=== PATIENT | male | born 1950 ===

== ENCOUNTER → 2020-07-16 | Outpatient (CLI) | payer MEDICARE | END | disposition home or self-care (01) | LOC: LABWHC1 10:55 | PROVIDERS: ATTEND Radiology Radiation Oncology | DX: C61 Malignant neoplasm of prostate (principal) | CPT/HCPCS: 36415; 84153 ==

== ENCOUNTER → 2020-09-04 | Outpatient (CLI) | payer MEDICARE ==
[2020-09-04 11:53] LABS: Basophils % (A) 1 %; Eosinophils % (A) 1 %; HCT 44.4 % (39.0-53.0); HGB 14.1 gm/dL (13.0-17.5); Lymphocytes # (A) 1.5 k/uL (1.0-4.8); Lymphocytes % (A) 29 %; MCH 31.8 pg (25.0-35.0); MCHC 31.8 g/dL (31.0-37.0); Mean Platelet Volume 8.5; Monocytes # (A) 0.4 k/uL (0-1.0); Monocytes % (A) 8 %; Neutrophils # (A) 3.1 k/uL (1.3-7.7); Neutrophils % (A) 60 %; Platelet Count 219 k/uL (150-450); RBC 4.44 m/uL (4.30-5.90); RDW 12.8 % (11.5-15.5); WBC 5.1 k/uL (3.8-10.6)
[2020-09-04 12:07] LABS: African American GFR (CKD) >90 (>60 ml/min/1.73 sqM); Anion Gap 5 mmol/L; Blood Urea Nitrogen 18 mg/dL (9-20); Calcium 9.4 mg/dL (8.4-10.2); Carbon Dioxide 29 mmol/L (22-30); Chloride 102 mmol/L (98-107); Glucose 116 mg/dL (74-99); Non-African American GFR(CKD) 86 (>60 ml/min/1.73 sqM); Potassium 4.5 mmol/L (3.5-5.1); Sodium 136 mmol/L (137-145)
== END | disposition home or self-care (01) ==
LOC: LABPAT 11:18
PROVIDERS: ATTEND Urology
DX: Z01.818 Encounter for other preprocedural examination (principal); C61 Malignant neoplasm of prostate; R53.83 Other fatigue
CPT/HCPCS: 80048; 85025

== ENCOUNTER 2020-09-11 09:16 | Day surgery (SDC) | payer MEDICARE ==
[2020-09-03 11:23] VITALS: BMI 25.5
--- NOTE | 2020-09-08 06:35 | P.GSHP ---
History of Present Illness H&P Date: 09/08/20 Chief Complaint: Prostate cancer The patient is a 70-year-old male whose father had prostate cancer. The patient was found to have an elevated PSA level of 10.8 in January 2020. NATTY revealed the prostate to be moderately enlarged but smooth. He is relatively free of voiding symptoms. Prostate ultrasound revealed a prostate volume of 32 mL. 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 His Prolaris score was 3.4. A repeat PSA level in June 2020 was 15.2. Alternative treatment options have been reviewed in detail with the patient, and he has elected to undergo a right nerve sparing robotic-assisted laparoscopic prostatectomy with bilateral pelvic lymphadenectomy. - Genitourinary (Male) Genitourinary: Reports as per HPI Past Medical History Past Medical History: Cancer, Hypertension, Prostate Disorder Additional Past Medical History / Comment(s): occ. constipation, prostate cancer, hx skin cancer History of Any Multi-Drug Resistant Organisms: None Reported Past Surgical History: Tonsillectomy Additional Past Surgical History / Comment(s): lipoma removed from back, skin cancer removed from chest Additional Past Anesthesia/Blood Transfusion Reaction / Comment(s): never had a transfusion Smoking Status: Never smoker - Past Family History Father Family Medical History: Cancer Additional Family Medical History / Comment(s): prostate Medications and Allergies Home Medications Medication Instructions Recorded Confirmed Type Aspirin [Adult Low Dose Aspirin EC] 81 mg PO DAILY 09/03/20 09/03/20 History Fish Oil(Dose Unknown) 1 tab PO DAILY 09/03/20 09/03/20 History Vitamin B Complex 1 each PO DAILY 09/03/20 09/03/20 History Zinc(Dose Unknown) 1 tab PO DAILY 09/03/20 09/03/20 History lisinopriL 20 mg PO HS 09/03/20 09/03/20 History Allergies Allergy/AdvReac Type Severity Reaction Status Date / Time No Known Allergies Allergy Verified 09/03/20 11:13 Surgical - Exam - General well developed, well nourished, no distress - Respiratory normal respiratory effort, clear to auscultation - Cardiovascular Rhythm: regular Abnormal Heart Sounds: no systolic murmur, no diastolic murmur, no rub, no S3 Gallop, no S4 Gallop, no click, no other - Abdomen Abdomen: soft, non tender, no guarding, no rigid, no rebound Hernia: no none, no inguinal, no epigastric, no incisional, no reducible, no femoral, no umbilical, no scrotal, no incarcerated - Genitourinary normal penis with no external lesions, testicles non-tender - Rectum Rectum: normal sphincter tone, no masses, other (Small left apical prostate nodule) - Psychiatric oriented to time, oriented to person, oriented to place, speech is normal, memory intact Assessment and Plan (1) Malignant neoplasm of prostate Status: Acute Code(s): C61 - MALIGNANT NEOPLASM OF PROSTATE SNOMED Code(s): 639495099 Plan: Right nerve sparing robotic-assisted laparoscopic prostatectomy (RALP) with bilateral pelvic lymphadenectomy. The procedure has been reviewed in detail with the patient. The anticipated perioperative course was reviewed. Also discussed were potential risks, which include anesthesia, bleeding, infection, bowel injury, neurovascular injury, urinary leak, lymphocele, and vesical neck contracture. The possible need to convert to an open procedure has been discussed. The patient is aware of the likelihood of erectile dysfunction despite preservation of the right neurovascular bundle. He is also aware of the risk of urinary incontinence which may fail to resolve. Lastly, the possible need for adjuvant therapy has been discussed.
[~2020-09-11 09:16] MED LIST: DEXAMETHASONE SOD PHOSPHATE 4 MG/ML 1 ML VIAL IV ONE; HEPARIN SODIUM,PORCINE 5,000 UNIT/ML 1 ML VIAL SQ PRN; LIDOCAINE 1% (10MG/ML) FOR IV START INTRADERMA PRN; MIDAZOLAM 2 MG/2 ML VIAL IV PRN; ONDANSETRON 4 MG/2 ML VIAL IVP ONE
[2020-09-11] MEDS: LACTATED RINGERS 1,000 ML IV SCH (10:51)
[2020-09-11] MEDS ORDERED: HYDROmorphone (PF) 1 MG/ML ONE (12:36)
[2020-09-11] MEDS ORDERED: WATER FOR INJECTION, STERILE 10 ML VIAL IV ONE (12:36)
[2020-09-11] MEDS ORDERED: ePHEDrine SULFATE/0.9% NACL/PF 50 MG/5 ML SYRINGE IV ONE (12:36)
[2020-09-11] MEDS ORDERED: MIDAZOLAM 2 MG/2 ML VIAL ONE (12:36)
[2020-09-11] MEDS ORDERED: ROCURONIUM 10 MG/ML (10 ML VIAL) IV ONE (12:36)
[2020-09-11] MEDS ORDERED: fentaNYL (PF) 50 MCG/ML 2 ML AMP ONE (12:36)
[2020-09-11] MEDS ORDERED: GLYCOPYRROLATE 0.2 MG/ML 2 ML VIAL ONE (12:36)
[2020-09-11] MEDS ORDERED: PROPOFOL 10 MG/ML 20 ML VIAL IV ONE (12:36)
[2020-09-11] MEDS ORDERED: LIDOCAINE 1% INJ 10MG/ML (20 ML MDV) ONE (12:36)
[2020-09-11] MEDS ORDERED: NEOSTIGMINE 1 MG/ML 10 ML VIAL ONE (12:36)
[2020-09-11] MEDS ORDERED: BUPIVACAINE (PF) 0.25% 30 ML VIAL SQ ONE (13:09)
--- NOTE | 2020-09-11 16:58 | P.OP ---
Date of Procedure: 09/11/20 Preoperative Diagnosis: Adenocarcinoma of the prostate, clinical stage TIc NX M0 Postoperative Diagnosis: Same Procedure(s) Performed: Robotic-assisted laparoscopic prostatectomy (RALP) with bilateral pelvic lymphadenectomy Anesthesia: ELLI Surgeon: Tristan De Paz Estimated Blood Loss (ml): 100 IV fluids (ml): 800 Pathology: other (Prostate, seminal vesicles, bilateral pelvic lymph nodes) Condition: stable Disposition: PACU Indications for Procedure: The patient is a 70-year-old male whose father had prostate cancer. The patient was found to have an elevated PSA level of 10.8 in January 2020. NATTY revealed the prostate to be moderately enlarged but smooth. He is relatively free of voiding symptoms. Prostate ultrasound revealed a prostate volume of 32 mL. 2 of 12 biopsies showed evidence of Stephanie 7 adenocarcinoma, both in the left apical region. His Prolaris score was 3.4. A repeat PSA level in June 2020 was 15.2. Alternative treatment options have been reviewed in detail with the patient, and he has elected to undergo a right nerve sparing robotic-assisted laparoscopic prostatectomy with bilateral pelvic lymphadenectomy. Operative Findings: No evidence of extraprostatic disease. Description of Procedure: The patient was taken in the operating room and placed in the dorsal lithotomy position, with his legs supported in Jason stirrups. He was carefully positioned on a beanbag for stability. The abdomen and external genitalia were prepped and draped sterilely. A Vega catheter was inserted. The Veress needle was passed through the anterior abdominal wall immediately cephalad to the umbilicus, and insufflation was performed to a pressure of 20 mm Hg. Once insufflation was performed, the Veress needle was removed and a supraumbilical incision was made, through which a 12 mm camera port was placed. Under camera guidance, 3 8 mm robotic ports were placed, 2 on the left and one on the right. An additional 12 mm port was placed on the right lateral side for use as an personal banking assistant port. A 5 mm port was placed to the right of the camera port for suction. The patient was placed in Trendelenburg position, and docking was then performed to the Weibui system utilizing a 4-arm approach. The abdomen was examined. The sigmoid colon was mobilized out of the pelvis. The peritoneum was incised lateral to the medial umbilical ligaments bilaterally, exposing the pubis. The peritoneum was then incised across the midline, allowing the bladder flap to be taken down. The endopelvic fascia was opened bilaterally, and muscular attachments from the urogenital diaphragm were swept away from the prostate. Bilateral pelvic lymphadenectomies were performed in the standard fashion. The peritoneal incisions were extended in a cephalad direction, and the vas deferens were divided bilaterally. Margins of dissection were the bifurcation of the iliac vessels proximally, the circumflex iliac vein distally, the external iliac artery laterally, and the obturator nerve medially. A combination of sharp and blunt dissection was used. Care was taken to avoid any neurovascular injury, and the use of monopolar electrocautery was avoided immediately adjacent to neurovascular structures. The lymphatic package was clipped distally. No enlarged lymph nodes were encountered. There were no complications. The vesical neck was incised transversely, down to the lumen. The Vega catheter was brought out through the anterior vesical neck incision and was used for traction. The posterior aspect of the vesical neck was incised, such that the full-thickness of the vesical neck was divided. The anterior layer of the Denonvilliers fascia was incised, exposing the vas deferens. Each were isolated and divided. Next, each of the seminal vesicles were dissected away from adjacent tissues, and vascular attachments were cauterized and divided. The posterior leaf of Denonvilliers fascia was incised transversely, allowing entry into the plane between the prostate and rectum. With lateral spreading, this plane was developed down to the apex. This exposed the lateral vascular pedicles bilaterally. These were clipped and divided in an antegrade fashion, down to the apex. The use of electrocautery was avoided to prevent thermal damage to the nerves. The right neurovascular bundle was preserved, but a nerve sparing procedure was not performed on the left side. The remaining apical attachments were swept away from the prostate. The dorsal venous complex was incised, as well as periurethral tissue. At this point, only the urethra remained intact. This was transected immediately distal to the prostatic apex using cold scissors. The specimen was placed within a specimen bag. The dorsal venous complex was sutured using a V-Loc suture in a running fashion. The suture was passed through the periosteum of the pubis periurethral support. A second V-Loc suture was then used to place the Justin stitch, incorporating the rhabdosphincter and the edge of Denonvilliers fascia. This allowed the bladder to be taken down to the urethra, leaving the vesical neck immediately adjacent to the urethra. The vesicourethral anastomosis was then performed using a V-Loc suture in a running fashion. After completing the anastomosis, an 18-Korean Vega catheter was placed and approximately 150 mL of 0.9 normal saline were instilled into the bladder. No extravasation of irrigant from the vesicourethral anastomosis was noted. Hemostasis was excellent. Surgicel was placed over the neurovascular bundles bilaterally. Tisseel was sprayed into the pelvis over the vascular pedicles, dorsal vein, and vesicourethral anastomosis. The patient was returned to the supine position. Undocking was performed, and the specimen bag sutures were passed through the camera port. After removing all the ports and allowing all of the CO2 to be released from the peritoneal cavity, the camera port incision was enlarged to allow removal of the surgical specimen. The fascia of this incision was then closed using 0-PDS suture in a running fashion. Each of the skin incisions were then closed using 4-0 Monocryl suture in a subcuticular fashion. Marcaine was injected at each of the incision sites. Dermabond was applied to each incision. The Vega catheter was connected to gravity drainage. All sponge and needle counts were correct. The patient tolerated the procedure well was taken to the recovery room in stable condition.
[2020-09-11] MEDS ORDERED: MAG HYDROX/AL HYDROX/SIMETH 30 ML CUP PO PRN (16:59)
[2020-09-11] MEDS ORDERED: ONDANSETRON 4 MG/2 ML VIAL IVP PRN (16:59)
[2020-09-11] MEDS ORDERED: ACETAMINOPHEN TAB 325 MG TAB PO PRN (16:59)
[2020-09-11] MEDS ORDERED: HYDROmorphone 1 MG/ML 1 ML SYRINGE IVP PRN (16:59)
[2020-09-11] MEDS ORDERED: KETOROLAC 15 MG/ML 1 ML VIAL IVP PRN (17:02)
[2020-09-11] MEDS: HYDROmorphone 0.5 MG/0.5 ML SYRINGE IVP PRN ×2 (17:20→17:25)
[2020-09-11] MEDS: HEPARIN SODIUM,PORCINE 5,000 UNIT/ML 1 ML VIAL SQ SCH (20:28)
[2020-09-11] MEDS ORDERED: lisinopriL 20 MG TAB PO SCH (21:00)
[2020-09-12] MEDS: DEXTROSE 5%-0.45% NACL 1,000 ML IV SCH ×3 (00:30→09:28)
[2020-09-12 02:47] VITALS: PULSE 72
[2020-09-12] MEDS: LACTATED RINGERS 1,000 ML IV SCH (05:22)
[2020-09-12 08:20] VITALS: BP 107/63; RESP 16; TEMP 98.3
[2020-09-12] MEDS: HEPARIN SODIUM,PORCINE 5,000 UNIT/ML 1 ML VIAL SQ SCH (08:52)
--- NOTE | 2020-09-12 19:02 | P.DS ---
Providers Attending physician: Tristan De Paz [facility] Course: This is 70-year-old male that underwent a robotic prostatectomy and pelvic lymph node dissection by Dr. De Paz on September 11. Please see op note dated September 11 for surgery detail. He was admitted to the floor postoperatively. He did well in the postoperative period and was discharged home on postoperative day #1. At time of discharge he was tolerating a diet, and ambulating, pain was controlled. His abdominal exam was benign, his incisions were clean dry and intact. He was discharged home with the Vega catheter Plan - Discharge Summary Discharge Rx Participant: Yes New Discharge Prescriptions: New Ciprofloxacin HCl [Cipro] 250 mg PO Q12HR 3 Days #10 tablet Ketorolac [Toradol] 10 mg PO Q6HR PRN #15 tab PRN Reason: Pain traMADol HCL [Ultram] 50 mg PO Q6HR PRN 3 Days #6 tab PRN Reason: Pain No Action lisinopriL 20 mg PO HS Aspirin [Adult Low Dose Aspirin EC] 81 mg PO DAILY Vitamin B Complex 1 each PO DAILY Zinc(Dose Unknown) 1 tab PO DAILY Fish Oil(Dose Unknown) 1 tab PO DAILY Discharge Medication List Aspirin [Adult Low Dose Aspirin EC] 81 mg PO DAILY 09/03/20 [History] Fish Oil(Dose Unknown) 1 tab PO DAILY 09/03/20 [History] Vitamin B Complex 1 each PO DAILY 09/03/20 [History] Zinc(Dose Unknown) 1 tab PO DAILY 09/03/20 [History] lisinopriL 20 mg PO HS 09/03/20 [History] Ciprofloxacin HCl [Cipro] 250 mg PO Q12HR 3 Days #10 tablet 09/12/20 [Rx] Ketorolac [Toradol] 10 mg PO Q6HR PRN #15 tab 09/12/20 [Rx] traMADol HCL [Ultram] 50 mg PO Q6HR PRN 3 Days #6 tab 09/12/20 [Rx] Follow up Appointment(s)/Referral(s): Tristan De Paz MD [STAFF PHYSICIAN] - 09/19/20 11:00 am Abdiel Barton DO [Primary Care Provider] - 09/18/20 9:20 am Patient Instructions/Handouts: *Surgery [facility] - Vega Catheter Instructions, Robot Assisted Laparoscopic Prostatectomy (DC) Activity/Diet/Wound Care/Special Instructions: Discharge home with Vega catheter. Instruct patient to use overnight drainage bag as well as urinary leg bag. Okay to shower. Diet as tolerated. No lifting, driving, or strenuous activity. Reassure patient that abdominal wall ecchymosis and penoscrotal swelling are normal. Instruct patient to begin taking antibiotics one day prior to Vega catheter removal. Discharge Disposition: HOME SELF-CARE
== END 2020-09-12 15:03 | disposition home or self-care (01) ==
LOC: OR 09:16 → 4SSUR 16:50 → OR 09-12 15:03
PROVIDERS: ATTEND Urology
DX: C61 Malignant neoplasm of prostate (principal); I10 Essential (primary) hypertension; Z85.828 Personal history of other malignant neoplasm of skin; Z98.890 Other specified postprocedural states; Z80.42 Family history of malignant neoplasm of prostate; Z79.82 Long term (current) use of aspirin; Z79.899 Other long term (current) drug therapy
CPT/HCPCS: 55866; 38571; 88307; 88309; C1762; J2250; J1644 ×2; J1100; J2710; J0690; J2405; J2001; J3010; J1170 ×2; J1885; J2704; 86850; 86900; 86901

== ENCOUNTER 2020-09-20 04:05 | Emergency (ER) | payer MEDICARE ==
[2020-09-20 04:12] VITALS: BP 124/82; PULSE 80; RESP 18; TEMP 98.2
--- NOTE | 2020-09-20 04:53 | ED ---
Male Urogenital HPI - General Chief complaint: Urogenital Stated complaint: Male Source: patient Mode of arrival: ambulatory Limitations: no limitations - History of Present Illness Initial comments: This patient is a 70-year-old man presenting with complaint of suspected urinary retention. The patient had prostate surgery 8 days ago and then had Vega catheter removed yesterday. Patient reportedly not able to pass urine for the past 10 hours and presenting with low abdominal pressure/aching type pain. The patient had been seen by nursing staff and had volume approximately 500 mL's in bladder. The patient had requested straight cath by nursing staff and this was performed, with resolution of his symptoms. Patient denies other complaints. MD Complaint: other (Suspected urinary retention) Onset/Timin -: hour(s) Location: abdomen Radiation: none Severity: moderate Quality: dull Consistency: constant Improves with: none Worsens with: none recent surgery Reports: urinary retention - Related Data Home Medications Medication Instructions Recorded Confirmed Aspirin [Adult Low Dose Aspirin EC] 81 mg PO DAILY 09/03/20 09/03/20 Fish Oil(Dose Unknown) 1 tab PO DAILY 09/03/20 09/03/20 Vitamin B Complex 1 each PO DAILY 09/03/20 09/03/20 Zinc(Dose Unknown) 1 tab PO DAILY 09/03/20 09/03/20 lisinopriL 20 mg PO HS 09/03/20 09/03/20 Previous Rx's Medication Instructions Recorded Ciprofloxacin HCl [Cipro] 250 mg PO Q12HR 3 Days #10 tablet 09/12/20 Ketorolac [Toradol] 10 mg PO Q6HR PRN #15 tab 09/12/20 traMADol HCL [Ultram] 50 mg PO Q6HR PRN 3 Days #6 tab 09/12/20 Allergies Allergy/AdvReac Type Severity Reaction Status Date / Time No Known Allergies Allergy Verified 09/20/20 04:12 Review of Systems ROS Statement: Those systems with pertinent positive or pertinent negative responses have been documented in the HPI. ROS Other: All systems not noted in ROS Statement are negative. Constitutional: Denies: fever, chills Respiratory: Denies: cough, dyspnea Cardiovascular: Denies: chest pain, palpitations, edema Gastrointestinal: Reports: as per HPI, abdominal pain. Denies: nausea, vomiting, diarrhea, constipation Genitourinary: Reports: other (Urinary retention). Denies: dysuria, frequency, hematuria, discharge, testicular pain Musculoskeletal: Denies: back pain Skin: Denies: rash Neurological: Denies: headache, weakness, numbness Past Medical History Past Medical History: Cancer, Hypertension, Prostate Disorder Additional Past Medical History / Comment(s): occ. constipation, prostate cancer, hx skin cancer History of Any Multi-Drug Resistant Organisms: None Reported Past Surgical History: Tonsillectomy Additional Past Surgical History / Comment(s): lipoma removed from back, skin cancer removed from chest, prostated removed Additional Past Anesthesia/Blood Transfusion Reaction / Comment(s): never had a transfusion Past Psychological History: Depression Smoking Status: Never smoker Past Alcohol Use History: Daily Past Drug Use History: Marijuana - Past Family History Father Family Medical History: Cancer Additional Family Medical History / Comment(s): prostate General Exam Limitations: no limitations General appearance: alert, in no apparent distress Head exam: Present: atraumatic, normocephalic Respiratory exam: Present: normal lung sounds bilaterally. Absent: respiratory distress, wheezes, rales, rhonchi, stridor Cardiovascular Exam: Present: regular rate, normal rhythm, normal heart sounds. Absent: systolic murmur, diastolic murmur, rubs, gallop GI/Abdominal exam: Present: soft. Absent: distended, tenderness, guarding, rebound, rigid, mass exam: Present: normal inspection Extremities exam: Present: normal inspection, normal capillary refill. Absent: pedal edema, calf tenderness Back exam: Absent: CVA tenderness (R), CVA tenderness (L) Neurological exam: Present: alert Skin exam: Present: warm, dry, intact, normal color. Absent: rash Course Vital Signs 09/20/20 04:09 Temperature 98.2 F Pulse Rate 80 Respiratory 18 Rate Blood Pressure 124/82 O2 Sat by Pulse 97 Oximetry Medical Decision Making - Medical Decision Making Patient is 70-year-old man presenting with complaint of urinary retention after Vega catheter removal. While I was seeing another patient, patient had straight cath performed by nursing staff which relieved his symptoms. When I see the patient he is now without complaint. Disposition Clinical Impression: Urinary retention Disposition: HOME SELF-CARE Condition: Good Instructions (If sedation given, give patient instructions): Urinary Retention in Men (ED) Is patient prescribed a controlled substance at d/c from ED?: No Referrals: Abdiel Barton DO [Primary Care Provider] - 1-2 days Tristan De Paz MD [STAFF PHYSICIAN] - 1-2 days
== END 2020-09-20 05:02 | disposition home or self-care (01) ==
LOC: EC 04:05
DX: R33.9 Retention of urine, unspecified (principal); I10 Essential (primary) hypertension; Z79.82 Long term (current) use of aspirin; Z79.899 Other long term (current) drug therapy; Z85.828 Personal history of other malignant neoplasm of skin; Z85.46 Personal history of malignant neoplasm of prostate
CPT/HCPCS: 51798; 99283

== ENCOUNTER → 2020-10-23 | Outpatient (CLI) | payer MEDICARE | END | disposition home or self-care (01) | LOC: LABWHC1 09:49 | PROVIDERS: ATTEND Urology | DX: C61 Malignant neoplasm of prostate (principal) | CPT/HCPCS: 36415; 84153 ==